=== PATIENT | male | born 1995 | race Two or more races ===

== ENCOUNTER 2024-05-10 09:12 | Emergency (ER) | payer OTHER, BC ==
[2024-05-10 09:26] VITALS: BP 136/82; PULSE 85; RESP 18; TEMP 98.6; BMI 29.6
== END 2024-05-10 10:04 | disposition home or self-care (01) ==
LOC: JER 09:12
DX: R51.9 Headache, unspecified (principal); L53.9 Erythematous condition, unspecified; Y04.0XXA Assault by unarmed brawl or fight, initial encounter; Y99.0 Civilian activity done for income or pay
CPT/HCPCS: 99282-25